=== PATIENT | female | born 1975 | race Caucasian/White ===

== ENCOUNTER 2016-10-09 07:48 | Day surgery (SDC) | payer OTHER ==
[~2016-10-09] VITALS: Ht 165.1 cm; Wt 63.5 kg
[2016-10-09] MEDS ORDERED: BISOPROLOL FM5 MG PO (08:39)
[2016-10-09] MEDS ORDERED: AMLODIPINE BESYL5 M1 PO (08:40)
[2016-10-09] MEDS ORDERED: SEVOFLURANE 250 ML BTL INH ONE (09:38)
[2016-10-09] MEDS ORDERED: ONDANSETRON 4 MG/2 ML VIAL ONE (09:38)
[2016-10-09] MEDS ORDERED: PROPOFOL 200 MG/20 ML VIAL IV ONE (09:38)
[2016-10-09] MEDS ORDERED: DEXAMETHASONE 4 MG/ML VIAL ONE (09:38)
[2016-10-09] MEDS ORDERED: fentaNYL 0.05 MG/ML VIAL ONE (09:40)
[2016-10-09] MEDS ORDERED: ONDANSETRON 4 MG/2 ML VIAL IVP PRN ×2 (09:55→10:00)
[2016-10-09] MEDS ORDERED: ACETAMINOPHEN/CODEINE 300/30MG 1 TAB PO PRN (10:00)
[2016-10-09] MEDS ORDERED: MORPHINE SULFATE 4 MG/ML SYR IM/IVP PRN (10:00)
[2016-10-09] MEDS ORDERED: IBUPROFEN 800 MG TAB PO PRN (10:00)
[2016-10-09] MEDS: HYDROmorphone 1 MG/ML AMP IVP PRN ×4 (10:10→10:40)
[2016-10-09] MEDS ORDERED: HYDROmorphone PFS 2 MG/ML SYR ONE (10:15)
== END 2016-10-09 12:25 | disposition home or self-care (01) ==
LOC: MDS 07:48 → MMU 08:05 → MDS 12:25
PROVIDERS: ATTEND Obstetrics & Gynecology
DX: N92.1 Excessive and frequent menstruation with irregular cycle (principal); I10 Essential (primary) hypertension; R93.8 Abnormal findings on diagnostic imaging of other specified body structures; Z90.81 Acquired absence of spleen; Z98.890 Other specified postprocedural states
CPT/HCPCS: 36415; 58120; 71010; 80053; 84702; 85025; 93005; J1100; J1170; J2405; J2704; J3010; J7120; Q0092

== ENCOUNTER 2018-04-29 10:47 | Emergency (ER) | payer OTHER ==
[~2018-04-29] VITALS: Ht 157.5 cm; Wt 65.0 kg
[~2018-04-29 10:47] MED LIST: AMLO5TAB4 PO; BISO5TAB2 PO
[2018-04-29 11:03] VITALS: BP 144/93
--- NOTE | 2018-04-29 11:18 | NUR ---
42 YO F BIB SELF W/ C/O VAGINAL BLEEDING X 3 DAYS WITH DIZZINESS; DENIES N/V/D AT THIS TIME. DENIES FEELING FAINT AT THIS TIME. PT AMBULATES W/ EVEN, STEADY GAIT TO THE RESTROOM. PT AAOX4, GCS 15, CMS INTACT, RR EVEN AND UNLABORED, LUNG SEALS CLEAR. ABD SOFT, NON-TENDER, BOWEL SOUNDS ACTIVE X 4 QUADS. ER MD NOTIFIED OF PT STATUS, PT NEEDS MET. SAFETY PRECAUTIONS IN PLACE. WILL CONTINUE TO MONITOR.
--- NOTE | 2018-04-29 12:20 | NUR ---
PT RESTING COMFORTABLY IN [facility] AT THIS TIME W/ VSS. WILL CONTINUE TO MONITOR.
[2018-04-29] MEDS ORDERED: ONDANSETRON 4 MG ODT PO ONE (12:25)
[2018-04-29 13:09] LABS: BASOPHILS # (AUTO) 0.1 K/uL (0.00-0.22); BASOPHILS % (AUTO) 0.9 % (0.0-2.0); EOSINOPHILS # (AUTO) 0.2 K/uL (0-0.4); HEMATOCRIT 35.4 % (36-48); HEMOGLOBIN 11.4 g/dL (12.0-16.0); LYMPHOCYTES # (AUTO) 2.3 K/uL (2.5-16.5); LYMPHOCYTES % (AUTO) 26.7 % (20.5-51.1); MEAN CORPUSCULAR HEMOGLOBIN 24 pg (27-31); MEAN CORPUSCULAR HGB CONC 32 g/dL (33-37); MEAN CORPUSCULAR VOLUME 75.2 fL (80-94); MONOCYTES # (AUTO) 0.7 K/uL (0.8-1.0); MONOCYTES % (AUTO) 8.4 % (1.7-9.3); NEUTROPHILS # (AUTO) 5.4 K/uL (1.8-7.7); PLATELET COUNT (AUTO) 356 K/uL (140-450); RED BLOOD CELL COUNT(AUTO) 4.71 MIL/uL (4.20-5.40); RED CELL DISTRIBUTION WIDTH 24.5 % (11.6-13.7); WHITE BLOOD COUNT (AUTO) 8.7 K/uL (4.8-10.8)
[2018-04-29 13:27] LABS: ALBUMIN 3.1 g/dL (3.4-5.0); CARBON DIOXIDE 30.4 mmol/L (21-32); CREATININE 0.4 mg/dL (0.6-1.3); TOTAL BILIRUBIN 0.3 mg/dL (0.0-1.0)
[2018-04-29 13:28] LABS: PROTHROMBIN TIME 10.2 secs (10.8-13.4)
[2018-04-29 13:29] LABS: POTASSIUM 2.4 mmol/L (3.5-5.1)
--- NOTE | 2018-04-29 13:29 | NUR ---
CRITICAL LAB 2.4 POTASSIUM,. CACHORRO GOMEZ NOTIFIED.
--- NOTE | 2018-04-29 13:33 | NUR ---
pt informed about elevated potassium level. will continue to monitor.
[2018-04-29] MEDS ORDERED: POTASSIUM CHLORIDE 10 MEQ TABER PO ONE (13:35)
[2018-04-29 14:03] VITALS: BP 137/75
--- NOTE | 2018-04-29 14:03 | NUR ---
Patient discharged with v/s stable. Written and verbal after care instructions given and explained. Patient alert, oriented and verbalized understanding of instructions. Ambulatory with steady gait. All questions addressed prior to discharge. ID band removed. Patient advised to follow up with PMD. Rx of Potassium, zofran, and provera given. Patient educated on indication of medication including possible reaction and side effects. Opportunity to ask questions provided and answered.
[2018-04-29 15:07] LABS: BILIRUBIN,URINE NEGATIVE (NEGATIVE); BLOOD, URINE 3+ (NEGATIVE); COLOR,URINE RED (YELLOW); LEUKOCYTE ESTERASE ,URINE NEGATIVE (NEGATIVE); NITRITE, URINE NEGATIVE (NEGATIVE); UGLUCOSE NEGATIVE (NEGATIVE)
[2018-04-29 15:11] LABS: APPEARANCE,URINE HAZY (CLEAR)
[2018-04-29 15:21] LABS: RBC,URINE TOO NUMEROUS TO COUN /HPF (0-5); WBC,URINE NONE SEEN /HPF (0-5)
== END 2018-04-29 14:03 | disposition home or self-care (01) ==
LOC: MED 10:47
DX: N93.8 Other specified abnormal uterine and vaginal bleeding (principal); E87.6 Hypokalemia; I10 Essential (primary) hypertension; Z79.899 Other long term (current) drug therapy
CPT/HCPCS: 36415; 80053; 81001; 81025; 83540; 85025; 85610; 85730; 99284; S0119